=== PATIENT | male | born 1975 | race Caucasian/White ===

== ENCOUNTER 2019-10-19 14:40 | Emergency (ER) | payer SELFPAY ==
[~2019-10-19] VITALS: Ht 193 cm; Wt 88.5 kg
== END 2019-10-19 15:24 | disposition home or self-care (01) ==
LOC: ED 14:40
DX: S50.812A Abrasion of left forearm, initial encounter (principal); V43.53XA Car driver injured in collision with pick-up truck in traffic accident, initial encounter; F17.200 Nicotine dependence, unspecified, uncomplicated
CPT/HCPCS: 99284